=== PATIENT | male | born 1950 | race Caucasian/White ===

== ENCOUNTER 2017-05-30 07:23 | Day surgery (SDC) | payer BC ==
[~2017-05-30 07:23] MED LIST: DIAZEPAM 5 MG TAB PO; DIPHENHYDRAMINE 50 MG CAP PO; FAMOTIDINE 20 MG TAB PO; SOD CHLORIDE 0.45% 1,000 ML IV
[2017-05-30 08:11] LABS: ADD MAN DIFF? NO
[2017-05-30 08:15] LABS: WHITE BLOOD COUNT 6.5 10^3/ul (4.8-10.8)
[2017-05-30 08:15] LABS: BASOPHILS % 0.6 % (0.0-2.0); EOSINOPHILS # 0.1 10^3/ul (0.0-0.5); EOSINOPHILS % 1.7 % (0.0-7.0); HEMATOCRIT 37.1 % (42.0-52.0); HEMOGLOBIN 12.4 g/dl (14.0-18.0); LYMPHOCYTES # 2.7 10^3/ul (0.8-2.9); LYMPHOCYTES % 41.6 % (15.0-51.0); MEAN CORPUSCULAR HEMOGLOBIN 30.4 pg (29.0-33.0); MEAN CORPUSCULAR HGB CONC 33.4 g/dl (32.0-37.0); MEAN CORPUSCULAR VOLUME 90.9 fl (82.0-101.0); MEAN PLATELET VOLUME 11.9 fl (7.4-10.4); MONOCYTE # 0.5 10^3/ul (0.3-0.9); MONOCYTES % 7.6 % (0.0-11.0); NEUTROPHIL # 3.1 10^3/ul (1.6-7.5); NEUTROPHILS % 48.2 % (39.0-77.0); PLATELET COUNT 197 10^3/UL (140-415); RED BLOOD COUNT 4.08 10^6/ul (4.70-6.10); RED CELL DISTRIBUTION WIDTH 12.8 % (11.5-14.5)
[2017-05-30 08:36] LABS: INR 0.95; PARTIAL THROMBOPLASTIN TIME 26.9 Sec (25.0-35.0); PROTIME 12.8 Sec (11.9-14.9)
[2017-05-30 08:40] LABS: ANION GAP 18 (8-16); CARBON DIOXIDE 24 mmol/L (21-31); CHLORIDE 107 mmol/L (97-110); CHOLESTEROL 143 mg/dl (100-200); GLUCOSE 110 mg/dl (70-220); HDL CHOLESTEROL 35 mg/dl (30-78); LDL CHOLESTEROL,CALCULATED 77 mg/dl; TRIGLYCERIDES 157 mg/dl (0-149)
[2017-05-30 08:51] LABS: BLOOD UREA NITROGEN 19 mg/dl (7-20); CALCIUM 8.9 mg/dl (8.4-10.2); CREATININE 0.79 mg/dl (0.61-1.24); POTASSIUM 4.1 mmol/L (3.5-5.1)
[2017-05-30 08:54] LABS: SODIUM 145 mmol/L (135-144)
[2017-05-30] MEDS ORDERED: VERAPAMIL 5 MG INJ (08:56)
[2017-05-30] MEDS ORDERED: LIDOCAINE 1% (MDV) 20 ML INJ (08:56)
[2017-05-30] MEDS ORDERED: MIDAZOLAM 1 MG/ML 2 ML INJ (08:56)
[2017-05-30] MEDS ORDERED: HEPARIN 1000 UNITS/ML 10 ML INJ (08:56)
[2017-05-30] MEDS ORDERED: FENTAnyl 50 MCG/ML VIAL (08:56)
[2017-05-30] MEDS ORDERED: IODIXANOL LOCM 100 ML BTL ×2 (08:56→10:04)
[2017-05-30] MEDS ORDERED: NITROGLYCERIN (IC) 100 MCG/ML INJ (08:57)
[2017-05-30] MEDS ORDERED: morphine 2 MG INJ IV (10:30)
[2017-05-30] MEDS ORDERED: AL HYDROX/MG HYDROX/SIMETH 30 ML CUP PO (10:30)
[2017-05-30] MEDS ORDERED: ACETAMINOPHEN 325 MG TAB PO (10:30)
[2017-05-30] MEDS ORDERED: ONDANSETRON 4 MG INJ IV (10:30)
[2017-05-30] MEDS: SOD CHLORIDE 0.9% 1,000 ML IV (11:16)
== END 2017-05-30 15:25 | disposition home or self-care (01) ==
LOC: SDS 07:23
DX: I25.10 Atherosclerotic heart disease of native coronary artery without angina pectoris (principal)
CPT/HCPCS: 71045; 80048; 80061; 85025; 85610; 85730; 93005; 93458

== ENCOUNTER 2018-08-19 07:25 | Day surgery (SDC) | payer MEDICARE, BC ==
[2018-08-19 08:22] LABS: ADD MAN DIFF? NO
[2018-08-19 08:27] LABS: BASOPHILS % 0.4 % (0.0-2.0); EOSINOPHILS # 0.1 10^3/ul (0.0-0.5); EOSINOPHILS % 2.3 % (0.0-7.0); HEMATOCRIT 34.7 % (42.0-52.0); HEMOGLOBIN 11.8 g/dl (14.0-18.0); LYMPHOCYTES # 2.3 10^3/ul (0.8-2.9); LYMPHOCYTES % 43.7 % (15.0-51.0); MEAN CORPUSCULAR VOLUME 91.1 fl (82.0-101.0); MEAN PLATELET VOLUME 11.1 fl (7.4-10.4); MONOCYTE # 0.4 10^3/ul (0.3-0.9); MONOCYTES % 7.7 % (0.0-11.0); NEUTROPHIL # 2.4 10^3/ul (1.6-7.5); NEUTROPHILS % 45.5 % (39.0-77.0); PLATELET COUNT 174 10^3/UL (140-415); RED BLOOD COUNT 3.81 10^6/ul (4.70-6.10); RED CELL DISTRIBUTION WIDTH 12.6 % (11.5-14.5)
[2018-08-19 08:27] LABS: WHITE BLOOD COUNT 5.2 10^3/ul (4.8-10.8)
[2018-08-19 08:46] LABS: INR 0.87; PROTIME 11.9 Sec (11.9-14.9); PT RATIO 0.9
[2018-08-19 08:47] LABS: PARTIAL THROMBOPLASTIN TIME 27.3 Sec (23.0-35.0)
[2018-08-19 08:55] LABS: ANION GAP 9 (5-13); BLOOD UREA NITROGEN 19 mg/dl (7-20); CALCIUM 8.6 mg/dl (8.4-10.2); CARBON DIOXIDE 25 mmol/L (21-31); CHLORIDE 105 mmol/L (97-110); CHOL/HDL RATIO 5.1 RATIO; CHOLESTEROL 148 mg/dl (100-200); CREATININE 0.66 mg/dl (0.61-1.24); Estimated GFR > 60 mL/min (>60); GLUCOSE 118 mg/dl (70-220); HDL CHOLESTEROL 29 mg/dl (30-78); LDL CHOLESTEROL,CALCULATED 81 mg/dl; POTASSIUM 3.9 mmol/L (3.5-5.1); SODIUM 139 mmol/L (135-144); TRIGLYCERIDES 191 mg/dl (0-149)
[2018-08-19] MEDS: SOD CHLORIDE 0.45% 1,000 ML IV (08:55)
[2018-08-19] MEDS: DIAZEPAM 5 MG TAB PO (08:57)
[2018-08-19] MEDS: FAMOTIDINE 20 MG TAB PO (08:57)
[2018-08-19] MEDS: DIPHENHYDRAMINE 50 MG CAP PO (08:57)
[2018-08-19] MEDS ORDERED: LIDOCAINE 1% (MDV) 20 ML INJ ×2 (09:19→09:53)
[2018-08-19] MEDS ORDERED: FENTAnyl 50 MCG/ML VIAL (09:53)
[2018-08-19] MEDS ORDERED: HEPARIN 1000 UNITS/ML 10 ML INJ (09:53)
[2018-08-19] MEDS ORDERED: MIDAZOLAM 1 MG/ML 2 ML INJ (09:53)
[2018-08-19] MEDS ORDERED: IODIXANOL LOCM 100 ML BTL (09:53)
[2018-08-19] MEDS ORDERED: VERAPAMIL 5 MG INJ (09:53)
[2018-08-19] MEDS ORDERED: SOD CHLORIDE 0.9% 500 ML (09:54)
[2018-08-19] MEDS ORDERED: NITROGLYCERIN (IC) 100 MCG/ML INJ (09:54)
[2018-08-19] MEDS ORDERED: ACETAMINOPHEN 325 MG TAB PO (11:00)
[2018-08-19] MEDS ORDERED: ONDANSETRON 4 MG INJ IV (11:00)
[2018-08-19] MEDS ORDERED: AL HYDROX/MG HYDROX/SIMETH 30 ML CUP PO (11:00)
[2018-08-19] MEDS: SOD CHLORIDE 0.9% 1,000 ML IV (11:56)
== END 2018-08-19 14:59 | disposition home or self-care (01) ==
LOC: SDS 07:25
DX: I25.10 Atherosclerotic heart disease of native coronary artery without angina pectoris (principal); I10 Essential (primary) hypertension; E78.5 Hyperlipidemia, unspecified
CPT/HCPCS: 71045; 80048; 80061; 82962; 85025; 85610; 85730; 93005; 93458